=== PATIENT | female | born 2000 | race Caucasian/White ===

== ENCOUNTER 2024-10-21 11:10 | Emergency (ER) | payer MEDICAID ==
[~2024-10-21] VITALS: Ht 172.7 cm; Wt 98.5 kg
[2024-10-21 14:00] VITALS: TEMP 98.4
[2024-10-21 14:21] VITALS: BP 120/80; PULSE 84; RESP 16; O2SAT 98
[2024-10-21] MEDS: ibuprofen tablet 400 MG TABLET PO ONE (14:26)
== END 2024-10-21 14:28 | disposition home or self-care (01) ==
LOC: ER 11:11
DX: B34.9 Viral infection, unspecified (principal); F17.200 Nicotine dependence, unspecified, uncomplicated; Z20.822 Contact with and (suspected) exposure to COVID-19
CPT/HCPCS: 36415; 87502; 87503; 87811; 99283